=== PATIENT | male | born 1960 | race Caucasian/White ===

== ENCOUNTER 2019-03-20 12:03 | Emergency (ER) | payer BC ==
[~2019-03-20] VITALS: Ht 182.9 cm; Wt 81.4 kg
[2019-03-20 12:07] VITALS: TEMP 97.4
[2019-03-20 12:38] LABS: HEMATOCRIT 45.2 % (42.0-52.0); HEMOGLOBIN 16.1 g/dl (13.5-18.0); MEAN CELL VOLUME 92 fl (80.0-100.0); MEAN CORPUSCULAR HEMOGLOBIN 33 pg (27.0-31.0); MEAN CORPUSCULAR HGB CONC 36 g/dl (33.0-37.0); MEAN PLATELET VOLUME 9.3 fl (7.4-10.4); PLATELET COUNT 242 K/mm3 (130-400); REDCELL DISTRIBUTION WIDTH-CV 12.7 % (11.5-14.5)
[2019-03-20 12:53] LABS: ALANINE AMINOTRANSFERASE 7 U/L (21-72); ALBUMIN 4.3 gm/dL (3.5-5.0); ALKALINE PHOSPHATASE 47 U/L (50-136); ANION GAP 11 mmol/L (7-16); AST,SGOT 23 U/L (15-37); BILIRUBIN,TOTAL 1.1 mg/dL (0.0-1.0); BLOOD UREA NITROGEN 12 mg/dL (9-20); C-REACTIVE PROTEIN 6.9 mg/dL (0.0-0.9); CALCIUM 9.7 mg/dL (8.4-10.2); CARBON DIOXIDE 25 mmol/L (22-30); CHLORIDE 100 mmol/L (98-107); CREATININE, serum 0.81 (0.66-1.25); GLUCOSE 108 mg/dL (74-106); SODIUM 136 mmol/L (137-145); TOTAL PROTEIN 7.8 gm/dL (6.4-8.2)
[2019-03-20 13:02] LABS: TROPONIN-I < 0.012 ng/mL (0.000-0.035)
[2019-03-20 13:16] LABS: BAND 4 % (0-10); EOSINOPHIL 3 % (0-4); NEUTROPHILS 44 % (42.0-75.2); PLATELET ESTIMATE NORMAL (NORMAL)
[2019-03-20 13:17] LABS: LYMPHOCYTE 32 % (20.0-51.0)
[2019-03-20] MEDS ORDERED: LEVAQUIN 750MG750 M1 PO (14:20)
[2019-03-20 14:30] VITALS: BP 122/89; PULSE 76
== END 2019-03-20 14:32 | disposition home or self-care (01) ==
LOC: COL.ER 12:03
PROVIDERS: Emergency Medicine
DX: J18.9 Pneumonia, unspecified organism (principal); F17.210 Nicotine dependence, cigarettes, uncomplicated
CPT/HCPCS: J7030; Q9967

== ENCOUNTER 2019-07-11 07:30 | Emergency (ER) | payer BC ==
[~2019-07-11] VITALS: Ht 182.9 cm; Wt 87.3 kg
[~2019-07-11 07:30] MED LIST: LEVAQUIN 750MG750 M1 PO
[2019-07-11 07:37] VITALS: TEMP 97.7
[2019-07-11 08:28] LABS: BASO % 0.6 % (0.0-2.0); EOS # 0.1 (0.0-0.7); EOS % 1.7 % (0-4.0); GRAN # 4.2 (1.4-6.5); GRAN % 57.8 % (42.2-75.2); HEMATOCRIT 48.4 % (42.0-52.0); HEMOGLOBIN 16.9 g/dl (13.5-18.0); LYMPH # 2.2 (1.2-3.4); LYMPH % 30.9 % (20.0-51.0); MEAN CELL VOLUME 95 fl (80.0-100.0); MEAN CORPUSCULAR HEMOGLOBIN 33 pg (27.0-31.0); MEAN CORPUSCULAR HGB CONC 35 g/dl (33.0-37.0); MEAN PLATELET VOLUME 8.9 fl (7.4-10.4); MONO # 0.6 (0.1-0.6); MONO % 8.6 % (1.7-9.3); PLATELET COUNT 279 K/mm3 (130-400); RED BLOOD COUNT 5.09 M/mm3 (4.20-5.60); REDCELL DISTRIBUTION WIDTH-CV 13.4 % (11.5-14.5)
[2019-07-11 08:39] LABS: ALANINE AMINOTRANSFERASE 31 U/L (21-72); ALBUMIN 4.7 gm/dL (3.5-5.0); ALKALINE PHOSPHATASE 68 U/L (50-136); ANION GAP 11 mmol/L (7-16); AST,SGOT 30 U/L (15-37); BILIRUBIN,TOTAL 0.9 mg/dL (0.0-1.0); BLOOD UREA NITROGEN 12 mg/dL (9-20); CALCIUM 9.5 mg/dL (8.4-10.2); CARBON DIOXIDE 26 mmol/L (22-30); CHLORIDE 102 mmol/L (98-107); CREATININE, serum 0.94 (0.66-1.25); GLUCOSE 114 mg/dL (74-106); MAGNESIUM 2.1 mg/dL (1.6-2.3); POTASSIUM 4.2 mmol/L (3.4-5.0); SODIUM 139 mmol/L (137-145); TOTAL PROTEIN 8.1 gm/dL (6.4-8.2)
[2019-07-11 08:44] LABS: ALCOHOL(ethanol),MEDICAL < 10 mg/dL
[2019-07-11 08:56] LABS: TROPONIN-I < 0.012 ng/mL (0.000-0.035)
[2019-07-11 09:59] LABS: COLLECTION METHOD CLEAN CATCH
[2019-07-11 10:07] LABS: MUCOUS Present /lpf; PH 7 (5-8); SQUAMOUS EPITHELIAL None Seen /hpf; URINE APPEARANCE Clear; URINE BACTERIA None Seen /hpf; URINE BILIRUBIN Negative (NEGATIVE); URINE BLOOD Negative (NEGATIVE); URINE COLOR Yellow; URINE GLUCOSE Negative (NEGATIVE); URINE KETONE Trace (NEGATIVE); URINE LEUKOCYTE ESTERASE Negative (NEGATIVE); URINE NITRATE Negative (NEGATIVE); URINE PROTEIN(semi-quant) Negative (NEGATIVE); URINE RBC 0-2 /hpf
[2019-07-11] MEDS ORDERED: VALIUM 5MG T5 MG/TAB PO (14:53)
[2019-07-11] MEDS ORDERED: ANTIVERT 25MG25 MG PO (14:53)
[2019-07-11] MEDS ORDERED: ZOFRAN ODT4 MG PO (14:53)
[2019-07-11 15:00] VITALS: BP 151/79; PULSE 71
== END 2019-07-11 15:00 | disposition home or self-care (01) ==
LOC: COL.ER 07:30
PROVIDERS: Emergency Medicine
DX: H81.20 Vestibular neuronitis, unspecified ear (principal); F17.210 Nicotine dependence, cigarettes, uncomplicated
CPT/HCPCS: J2405; J3360; J7030